=== PATIENT | female | born 1955 | race Caucasian/White ===

== ENCOUNTER 2017-01-25 09:11 | Day surgery (SDC) | payer MEDICARE, OTHER ==
[~2017-01-25 09:11] MED LIST: NORMAL SALINE 3 ML BOX IV PRN; RINGERS SOLUTION,LACTATED 1,000 ML IV PRN; ROPIVACAINE HCL/PF 40 MG in NORMAL SALINE 16 ML IJ PRN; VANCOMYCIN HCL 1 GM in DEXTROSE 5 % IN WATER 250 ML IV PRN
--- OUTSIDE RECORDS SUMMARY | 2017-01-25 09:17 | XMS REPORT | Continuity of Care Document ---
:1955 Author Organization [place] [address] Care Team Providers Name Role Phone Provider, Not In System Primary Care Provider Unavailable Source Comments This disclosure is being made pursuant to the [employer] program and maynot contain all information available regarding this patient.[facility] Active Allergies and Adverse Reactions Allergen Noted Date Severity Reactions Comments Other 05/04/2015 Other (See Comments) Patient says she is allergic to all antibiotics and she has had convulsions Current Medications Be aware that medications may not be up to date as of this document. Alwaysverify current medications with the patient. Prescription Sig. Disp. Refills Start Date End Date Status lisinopril Take 40 mg by mouth 6 03/16/2015 Active (PRINIVIL,ZESTRIL) 20 MG daily. tablet acyclovir (ZOVIRAX) 5 % 0 03/16/2015 Active ointment metoprolol tartrate Take 25 mg by mouth 6 03/16/2015 Active (LOPRESSOR) 25 MG tablet 2 (two) times daily. NITROSTAT 0.4 MG SL 0 03/16/2015 Active tablet sertraline (ZOLOFT) 100 Take 100 mg by 11 03/30/2015 Active MG tablet mouth daily. triamterene-hydrochloroth Take 1 tablet by 6 03/16/2015 Active iazide (MAXZIDE-25) mouth daily. 37.5-25 MG per tablet vitamin D, Take 50,000 Units Active Ergocalciferol, [address] by mouth once a UNITS capsule week. Active Problems Not on file Most Recent Encounters Date Type Specialty Providers Description 01/24/2017 Data Import Social History Tobacco Use Types Packs/Day Years Used Date Never Smoker Smokeless Tobacco: Never Used Last Filed Vital Signs Vital Sign Reading Time Taken Blood Pressure 120/80 05/04/2015 3:40 PM CDT Pulse - - Temperature - - Respiratory Rate - - Height 1.676 m (5' 6") 05/04/2015 3:40 PM CDT Weight 87.091 kg (192 lb) 05/04/2015 3:40 PM CDT Body Mass Index 31 05/04/2015 3:40 PM CDT Oxygen Saturation - - Plan of Care Health Maintenance Due Date Last Done Comments Hepatitis C Screening 1974 Tetanus/Pertussis (1 - Tdap) 1975 Pap Smear 1977 Colonoscopy 2006 Mammogram 2006 Well Adult Visit 2006 Influenza Immunization (#1) 2016 Zoster Vaccine 60+ 2016 Results from Last 3 Months Not on file
--- OUTSIDE RECORDS SUMMARY | 2017-01-25 09:18 | XMS REPORT | Continuity of Care Document ---
:1955 Author Organization [facility] ([facility]) Address [address] [place] [address] Phone [phone] Care Team Providers Name Role Phone Alfreda Tsang Primary Care Provider [phone] Source Comments This disclosure is being made pursuant to the Care Everywhere program, applicable federal and state laws, and may not contain all informaitonavailable regarding this patient.[facility] ([facility]) Active Allergies and Adverse Reactions Allergen Noted Date Severity Reactions Comments Cefazolin 05/12/2012 Hypotension ANCEF -noted in letter dated 06/10/02 from testing in Allergy-Immunology at [facility] Ibuprofen 10/05/2010 Rash Lactose 05/06/2012 OTHER intollerant Naproxen 10/05/2010 Stomach Pain,Rash Non-Med Metal Urticaria (Hives) when metal is in contact with skin a long time, ex: mac Other Agent Seizure,Hypotension Allergy testing at [facility] 06/10/2002 DR. Lefty Gold. Allergy to Ancef and PCN. Recommend Vancomycin "Nearly all antibiotics" I was tested for some, but no record available today. Penicillins Anaphylactic Shock remembers being deathly ill as a child,her dad said she should never take it Current Medications Prescription Sig. Disp. Refills Start Date End Date Status SERTraline 100 mg Take 1 Tab by mouth 30 Tab 0 07/09/2012 Active tablet daily. Indications: DEPRESSION nitroglycerin 0.[address] 1 Tab under 25 Tab 11 10/13/2012 Active tablet the tongue every 5 minutes as needed. Indications: ANGINA PECTORIS PREVENTION acyclovir (ZOVIRAX) 5 % apply topically 30 g 1 11/12/2012 Active ointment every 3 hours. Indications: MUCOCUTANEOUS HERPES SIMPLEX triamterene-hydrochloro Take 1 Tab by mouth Active thiazide 37.5-25 mg per Every morning. tablet Indications: HYPERTENSION cholecalciferol Take 1 Tab by mouth 90 Tab 2 01/12/2014 Active (VITAMIN D3) 1,000 unit daily. 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 Dry eye syndrome 05/06/2012 Obesity, unspecified 02/25/2012 HTN (hypertension) 10/30/2011 Depression 10/30/2011 Choroidal nevus of right eye 04/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 Glaucoma suspect 10/05/2010 Resolved Problems Problem Noted Date Resolved Date Nuclear sclerotic cataract of both eyes 05/06/2012 10/30/2012 Osteoporosis 10/30/2011 04/08/2012 Overview: Normal DEXA 10/2011 Immunizations Name Dates Previously Given Next Due DTaP, unspecified 10/30/2006 Social History Tobacco Use Types Packs/Day Years Used Date Former Smoker Cigarettes 1 10 Quit: 10/05/1979 Smokeless Tobacco: Never Used Tobacco Cessation:Counseling Given: Yes Comments: Alcohol Use Drinks/Week oz/Week Comments No Last Filed Vital Signs Vital Sign Reading Time Taken Blood Pressure 109/59 04/01/2015 3:07 PM CDT Pulse 82 04/01/2015 3:07 PM CDT Temperature 36.4 C (97.5 F) 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 Respiratory Rate 16 11/19/2012 8:13 AM ELECTRIC METER INSPECTOR Height 1.651 m (5' 5") 04/01/2015 3:07 PM CDT Weight 88.451 kg (195 lb) 04/01/2015 3:07 PM CDT Body Mass Index 32.45 04/01/2015 3:07 PM CDT Oxygen Saturation 95% 04/01/2015 3:07 PM CDT Plan of Care Patient Goal Type Goal Result Component LDLC below 130 Health Maintenance Due Date Last Done Comments Hepatitis B Vaccine (1 of 3 - Primary Series) 1955 Tdap Vaccine 1967 MMR Vaccine 1974 Cervical Cancer Screening 1986 Colonoscopy 2006 FOBT Colon Cancer Screening 2006 Sigmoidoscopy Colon Cancer Screening 2006 Mammogram 02/24/2013 02/25/2012 Influenza Vaccine: Seasonal (#1) 05/28/2016 Zoster Vaccine 2016 Td Vaccine 10/30/2016 10/30/2006 Lipid Disorder Screening 10/13/2017 10/13/2012 HCV Screening Completed 11/12/2012 Results from Last 3 Months Not on file
[2017-01-25] MEDS ORDERED: RINGERS SOLUTION,LACTATED 1,000 ML IV ONE ×2 (10:05→11:55)
[2017-01-25] MEDS ORDERED: BUPIVACAINE HCL/EPINEPHRINE 10 ML VIAL IJ ONE (11:26)
--- NOTE | 2017-01-25 12:46 | OR ---
Operative Report - Dictated Report Narrative: Date: 01/25/2017 Physician: Dustin Hooper M.D. Manager Commodities: Jose De Jesus José PA-C Preoperative diagnosis: Left Knee medial meniscus tear, Gomez's cyst Postoperative diagnosis: Left Knee medial femoral condyle chondromalacia, loose bodies, Gomez cyst Procedure: Left knee arthroscopy, chondroplasty medial femoral condyle, removal of loose bodies, aspiration of Gomez cyst Anesthesia: General Plus local Complications: None Estimated blood loss: Minimal Tourniquet time: None Specimens: None Retained implants: None Drains: None Indications: Mrs. Carias Is a 61 year-old female who has been followed in my clinic with complaints of knee pain consistent with suspected medial joint pathology and Gomez cyst. Physical exam and diagnostic imaging were consistent with these complaints and concern for medial meniscus pathology. Conservative measures have failed including, but not limited to, passage of time, activity modification, medications, and injections. The risks, benefits, and alternatives were discussed in clinic. The risks being , bleeding, infection, blood clots, nerve, tendon, ligament, blood vessel injury, persistent pain, arthrosis, need for additional procedures, and persistent symptoms. Consent was obtained in the clinic. Procedure: After marking the correct extremity in the preoperative holding area, a timeout was performed in the operating room. No IV antibiotics were administered prior to the procedure due to allergies to essentially all antibiotics as well as the patient's preference and the clean nature of the case. A well-padded tourniquet was applied to the operative upper thigh. The leg was prepped and draped in a standard sterile fashion. 0.5% Marcaine with epinephrine was infused into the projected portal sites as well as the intra-articular space. A nicolette incision was made for inferior lateral portal. A blunt trocar and cannula was introduced into the knee. The suprapatellar pouch revealed multiple small chondral loose bodies. The medial patella facet showed grade 2- 3 change. The lateral patella facet showed grade 2 change. The trochlea showed grade 2 with focal grade 3 change. The medial gutter revealed no pathology. The medial joint space was then entered utilizing a lateral post and valgus stress. A spinal needle was utilized for guidance into placement of an anterior medial portal. This was placed just superior to the medial meniscus ensuring that we could reach the posterior aspect of the medial joint space. A nicolette incision was made in the site, and the probe was introduced to the knee. The medial joint space was examined, and the medial femoral condyle showed grade 3 change was chondral edges. The medial tibial plateau showed grade 2 change. The medial meniscus showed no tear. There was a small loose chondral body which was below the meniscus which was excised using a shaver. The notch was then examined, and the ACL was noted to be intact. The PCL was noted to be intact. The lateral joint space was then examined using a varus force in the figure 4 position. Lateral femoral condyle showed minimal arthrosis. Lateral tibial plateau showed grade 1 change. The lateral meniscus showed no tear. The lateral gutter showed no pathology. Having identified the surgical pathology, a shaver was utilized in order to debride the medial femoral condyle and the loose bodies. Once it was felt that we adequately addressed the pathology, the knee was thoroughly irrigated. The fluid was evacuated ensuring that we have removed all meniscal, chondral, and any other loose bodies. A final evaluation of the joint showed no additional pathology. Next the Gomez cyst was aspirated using a spinal needle from the posterior aspect of the knee. We were able to get approximate 20 mL of thick viscous clear fluid out of the cyst with significant decompression size. The fluid was then evacuated of the knee, and the trocar and camera were removed from the joint. The wounds were closed with interrupted nylon after placing 20 mL of 0.2 % ropivacaine into the joint. Dressings consisting of Xeroform, 4 x 4, ABD, soft roll, and an Lenin were applied. All sponge, needle, blade, and instrument counts were correct prior to closing the wounds. The patient was awoken and transferred to the postanesthesia care unit in stable condition.
[2017-01-25 13:04] VITALS: BP 124/71
== END 2017-01-25 09:12 | disposition home or self-care (01) ==
LOC: AMB 09:11
PROVIDERS: ATTEND Orthopaedic Surgery
PROC: 0SBD4ZZ Excision of Left Knee Joint, Percutaneous Endoscopic Approach (ICD-10-PCS; principal; 2017-01-25 12:15)
PROC: 0M9P3ZZ Drainage of Left Knee Bursa and Ligament, Percutaneous Approach (ICD-10-PCS; 2017-01-25 12:15)
DX: M94.262 Chondromalacia, left knee (principal); M71.22 Synovial cyst of popliteal space [Baker], left knee; I10 Essential (primary) hypertension; E78.5 Hyperlipidemia, unspecified; D64.9 Anemia, unspecified; K21.9 Gastro-esophageal reflux disease without esophagitis; M19.90 Unspecified osteoarthritis, unspecified site; F32.9 Major depressive disorder, single episode, unspecified; E66.9 Obesity, unspecified; Z68.33 Body mass index [BMI] 33.0-33.9, adult; Z87.891 Personal history of nicotine dependence

== ENCOUNTER 2017-02-06 16:43 | Emergency (ER) | payer MEDICARE, OTHER ==
--- OUTSIDE RECORDS SUMMARY | 2017-02-06 17:26 | XMS REPORT | Continuity of Care Document ---
:1955 Author Organization [employer] [place] [address] Care Team Providers Name Role Phone Provider, Not In System Primary Care Provider Unavailable Source Comments This disclosure is being made pursuant to the [employer] program and maynot contain all information available regarding this patient.[facility] Active Allergies and Adverse Reactions Allergen Noted [...] vitamin D, Take 50,000 Units Active Ergocalciferol, [address]178 by mouth once a UNITS capsule week. [...]
--- OUTSIDE RECORDS SUMMARY | 2017-02-06 17:27 | XMS REPORT | Continuity of Care Document ---
:1955 Author Organization [facility] ([facility]) Address [address] [place] [address] Phone [phone] Care Team Providers Name Role Phone Alfreda Tsang Primary Care Provider [phone] Source Comments This disclosure is being made pursuant to the Care Everywhere program, applicable federal and state laws, and may not contain all informaitonavailable regarding this patient.[facility] ([facility]) Active Allergies and Adverse Reactions Allergen Noted Date Severity Reactions Comments Cefazolin 05/12/2012 Hypotension ANCEF -noted in letter dated 06/10/02 from testing in Allergy-Immunology at [facility] Ibuprofen 10/05/2010 Rash Lactose 05/06/2012 OTHER intollerant Naproxen 10/05/2010 Stomach Pain,Rash Non-Med Metal Urticaria (Hives) when metal is in contact with skin a long time, ex: mac Other Agent Seizure,Hypotension Allergy testing at [facility] 06/10/2002 DR. Lefty Gold. 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
--- NOTE | 2017-02-06 18:00 | ERNOTE ---
Dyspnea - General Presenting Symptoms: shortness of breath Time Seen by Provider: 02/06/17 17:10 Source: patient - Immun/Allergies/Home Medications Allergies/Adverse Reactions: Allergies erythromycin base [Erythromycin Base] Allergy (Severe, Verified 02/06/17 16:49) convulsions all antibiotics penicillin G Allergy (Severe, Verified 02/06/17 16:49) convulsions all antibiotics except vancomycin mupirocin Allergy (Intermediate, Verified 02/06/17 16:49) tongue swells, hives atorvastatin calcium [From Lipitor] Adverse Reaction (Mild, Verified 02/06/17 16 :49) "intolerant" cefazolin sodium [From Ancef] Adverse Reaction (Mild, Verified 02/06/17 16:49) low bp ibuprofen [From Motrin] Adverse Reaction (Mild, Verified 02/06/17 16:49) upset stomach lactose Adverse Reaction (Mild, Verified 02/06/17 16:49) gi upset perfume Adverse Reaction (Mild, Verified 02/06/17 16:49) migraines ANTIBIOTICS Allergy (Intermediate, Uncoded 02/06/17 16:49) pt states all antibiotics cause convulsions and confusion metal Adverse Reaction (Mild, Uncoded 02/06/17 16:49) rash Home Medications: HOME MEDICATIONS Lisinopril [Zestril] 20 mg PO DAILY 03/24/13 [Last Taken 01/25/17 08:00] Metoprolol Tartrate [Lopressor] 25 mg PO DAILY 03/24/13 [Last Taken 01/25/17 08: 00] Sertraline HCl [Zoloft] 100 mg PO DAILY 03/24/13 [Last Taken Unknown] Acetaminophen [Tylenol] 650 mg PO Q4H PRN 03/09/14 [Last Taken Unknown] LORazepam [Ativan] 0.5 mg PO TID PRN 03/09/14 [Last Taken Unknown] oxyCODONE HCL/ACETAMINOPHEN [Percocet 5 MG/325 MG] 0.5 - 1 tab PO TID PRN [Last Taken Unknown] Cholecalciferol [Vitamin D] 2,000 unit PO DAILY 01/23/17 [Last Taken Unknown] Nitroglycerin [Nitrostat] 0.4 mg SL [id number] PRN 01/23/17 [Last Taken Unknown] Penciclovir [Denavir] 1 applic TP Q2H PRN 01/23/17 [Last Taken Unknown] Triamterene/Hydrochlorothiazid [Maxzide 37.5MG/25 MG] 1 tab PO DAILY 01/23/17 [ Last Taken Unknown] Zolpidem Tartrate [Ambien] 5 mg PO HS 01/23/17 [Last Taken Unknown] oxyCODONE HCL/ACETAMINOPHEN [Oxycodone-Acetaminophen 5-325] 1 each PO Q4H PRN # 30 tablet 01/25/17 [Last Taken Unknown] - History of Present Illness Narrative: Patient had recent surgery in her right knee and today had sudden moderate to severe short of breath. Her examination revealed an elevated d-dimer, so patient will have a CT angiogram of the chest to rule out pulmonary embolus. Severity: moderate Initiating event: Reports: none Frequency of episodes: Reports: no prior episodes Modifying Factors (Worsens): Reports: activity Associated Symptoms-Dyspnea: Reports: denies symptoms Prior Treatment: Reports: recently seen, treated by physician Review of Systems - Review of Systems Constitutional: Present: See HPI EYE: Present: no symptoms reported ENT: Present: no symptoms reported Respiratory: Present: shortness of breath Cardiology: Present: no symptoms reported Gastrointestinal/Abdominal: Present: no symptoms reported Genitourinary: Present: no symptoms reported Musculoskeletal: Present: no symptoms reported Skin: Present: no symptoms reported Neurological: Present: no symptoms reported Endocrine: Present: no symptoms reported Hematologic/Lymphatic: Present: no symptoms reported Psych: Present: no symptoms reported - Patient's Past Medical History Patient History - Medical: Anemia, Anxiety, Depression, GERD, Osteoarthritis, Other Patient History - Cardiac/Respiratory: Hypertension, Hyperlipidemia, Sleep Apnea Patient History - Cancer: No Hx of Cancer Patient History - Surgical Procedures: Appendectomy, Cataracts, Cholecystectomy , Colonoscopy, , D & C, Hysterectomy, Tubal Ligation, Other Patient History - Other: None - Family History Brother Family History - Medical: Other Family History - Cardiac/Respiratory: No pertinent hx Family History - Cancer: No pertinent family hx Mother Family History - Medical: , Alcohol Abuse, Other Family History - Cardiac/Respiratory: Asthma, Coronary Heart Disease, Other Family History - Cancer: Other Father Family History - Medical: , Alcohol Abuse, Other Family History - Cardiac/Respiratory: No pertinent hx Family History - Cancer: Other - Social History Living Situations: home Abuse History: No History of abuse Psych History: Hx of Anxiety, Hx of Depression Alcohol Use: none Drug Use: none Physical Exam - Physical Exam General Appearance: Present: wd/wn, alert, no apparent distress, mild distress Eye Exam: Normal inspection: bilateral, PERRL: bilateral Ears, Nose, Throat: Present: normal ENT inspection, H, normal pharynx Neck: Present: normal inspection, nontender Respiratory: Present: no respiratory distress, normal breath sounds, no accessory muscle use, chest nontender, lungs clear Cardiovascular/Chest: Present: regular rate, rhythm, no murmur, normal peripheral pulses Gastrointestinal/Abdominal: Present: normal bowel sounds, nontender, nondistended, soft, no organomegaly Rectal Exam: Present: deferred Back Exam: Present: normal inspection, normal range of motion Extremity Exam: Present: normal inspection, non-tender, no edema, normal range of motion Neurological Exam: Present: alert, oriented, normal mood/affect Skin Exam: Present: normal color, warm/dry Lymphatic Exam: Present: no adenopathy ED Progress - Results and Orders Patient's Lab Results:: I have reviewed the patient's lab results. - done earlier by Dr. Eubanks - Vital Signs Vital Signs: Vital Signs 02/06/17 16:44 Temperature 36.0 C L Pulse Rate 77 Respiratory 12 Rate Blood Pressure 139/78 O2 Sat by Pulse 98 Oximetry - CT/Ultrasound CT/Ultrasound Narrative: CT results were reviewed - Progress/Reassessment Chief Complaint: Dyspnea Plan - Plan Plan: Patient will return to Dr. Eubanks for her ongoing care. No evidence of any PE was found on the chest CT. Departure Clinical Impression: Dyspnea Qualifiers: Dyspnea type: shortness of breath Qualified Code(s): R06.02 - Shortness of breath - Departure Disposition: Home self-care Condition: Good Instructions: D-Dimer Test
[2017-02-06 20:23] VITALS: BP 130/85
== END 2017-02-06 19:14 | disposition home or self-care (01) ==
LOC: ER 16:43
DX: R06.00 Dyspnea, unspecified (principal); I10 Essential (primary) hypertension; F41.9 Anxiety disorder, unspecified